=== PATIENT | female | born 1950 | race Caucasian/White ===

== ENCOUNTER 2022-06-23 21:57 | Emergency (ER) | payer MEDICARE, OTHER ==
[~2022-06-23] VITALS: Ht 165.1 cm; Wt 90.9 kg
[2022-06-24 00:37] LABS: BASOPHILS % (AUTO) 0.5 % (0-1); EOSINOPHILS # (AUTO) 0.1 X10'3 (0-0.9); EOSINOPHILS % (AUTO) 1.7 % (0-6); HEMATOCRIT 35.5 % (35.0-45.0); HEMOGLOBIN 11.5 g/dl (12.0-16.0); LYMPHOCYTES # (AUTO) 1.3 X10'3 (1.1-4.8); LYMPHOCYTES % (AUTO) 19.6 % (21-51); MEAN CORPUSCULAR HEMOGLOBIN 26.7 PG (27.0-31.0); MEAN CORPUSCULAR HGB CONC 32.3 g/dL (33.0-36.5); MEAN CORPUSCULAR VOLUME 82.6 FL (78-98); MEAN PLATELET VOLUME 7.9 FL (7.4-10.4); MONOCYTES # (AUTO) 0.5 X10'3 (0-0.9); MONOCYTES % (AUTO) 7.9 % (2-12); NEUTROPHILS # (AUTO) 4.6 X10'3 (1.8-7.7); NEUTROPHILS % (AUTO) 70.3 % (42-75); PLATELET COUNT 404 X10'3 (140-440); RED CELL DISTRIBUTION WIDTH 15.3 % (11.5-14.5); WHITE BLOOD COUNT 6.6 X10'3 (4.5-11.0)
[2022-06-24 00:59] LABS: ALANINE AMINOTRANSFERASE 27 U/L (12-78); ALBUMIN 3.6 G/DL (3.4-5.0); ALBUMIN/GLOBULIN RATIO 0.9 (1.1-1.5); ALKALINE PHOSPHATASE 109 IU/L (46-116); ANION GAP 6 (8-16); ASPARTATE AMINO TRANSFERASE 21 U/L (10-37); BILIRUBIN,TOTAL 0.2 MG/DL (0.1-1.0); BLOOD UREA NITROGEN 19 MG/DL (7-18); BUN/CREATININE RATIO 19.4 (6.6-38.0); CALCIUM 8.8 MG/DL (8.5-10.1); CHLORIDE 102 MMOL/L (99-107); CREATININE 0.98 MG/DL (0.40-0.90); GLUCOSE 108 MG/DL (70-104); POTASSIUM 4.3 MMOL/L (3.5-5.1); SODIUM 138 MMOL/L (135-145); TOTAL CARBON DIOXIDE 30.3 MMOL/L (24-32); TOTAL PROTEIN 7.4 G/DL (6.4-8.2); eGFR 56 ML/MIN
[2022-06-24] MEDS ORDERED: normal saline 1000ML IV soln IVB ONE (01:45)
[2022-06-24] MEDS ORDERED: ondansetron/PF 4mg/2ml inj IV ONE (01:45)
[2022-06-24 04:35] LABS: CLARITY,URINE CLEAR (Clear); COLOR,URINE YELLOW (Yellow); GLUCOSE, URINE NEGATIVE (Neg); KETONES,URINE TRACE mg/dl (Neg); LEUKOCYTE ESTERASE ,URINE TRACE (Neg); NITRITES, URINE NEGATIVE (Neg); OCCULT BLOOD,URINE NEGATIVE (Neg); PH,URINE 5.5 (4.8-8.0); PROTEIN,URINE NEGATIVE (Neg); UROBILINOGEN,URINE 0.2 E.U/dL (0.2-1.0)
[2022-06-24 04:44] LABS: UA COLLECTION TYPE CLN CATCH MIDSTREAM
[2022-06-24 04:45] LABS: MUCUS STRANDS MODERATE /LPF (Neg); SQUAMOUS EPITHELIAL CELL,UR MANY /LPF (FEW)
[2022-06-24 04:46] LABS: RBC,URINE 0-2 /HPF (0-2)
[2022-06-24 04:47] VITALS: BP 135/73
[2022-06-24 04:47] LABS: BACTERIA,URINE FEW /HPF (Neg); WBC,URINE 20-30 /HPF (0-4)
== END 2022-06-24 06:08 | disposition home or self-care (01) ==
LOC: ER 21:59 → EDBD 21:59 → ER 06-24 06:08
DX: R53.1 Weakness (principal); E86.0 Dehydration; R42 Dizziness and giddiness; Z88.0 Allergy status to penicillin; Z88.1 Allergy status to other antibiotic agents
CPT/HCPCS: 36415; 71045; 80053; 81001; 83880; 84484; 85025; 93005; 96360; 99285; J7030

== ENCOUNTER 2023-08-30 16:02 | Emergency (ER) | payer MEDICARE, OTHER ==
[~2023-08-30] VITALS: Ht 160 cm; Wt 81.0 kg
[2023-08-30 18:27] LABS: BASOPHILS % (AUTO) 0.7 % (0-1); EOSINOPHILS # (AUTO) 0.1 X10'3 (0-0.9); EOSINOPHILS % (AUTO) 1.8 % (0-6); HEMOGLOBIN 12.5 g/dl (12.0-16.0); LYMPHOCYTES # (AUTO) 1.8 X10'3 (1.1-4.8); LYMPHOCYTES % (AUTO) 27.6 % (21-51); MEAN CORPUSCULAR HEMOGLOBIN 27.5 PG (27.0-31.0); MEAN CORPUSCULAR HGB CONC 32.9 g/dL (33.0-36.5); MEAN CORPUSCULAR VOLUME 83.4 FL (78-98); MEAN PLATELET VOLUME 7.6 FL (7.4-10.4); MONOCYTES # (AUTO) 0.6 X10'3 (0-0.9); MONOCYTES % (AUTO) 8.8 % (2-12); NEUTROPHILS # (AUTO) 4.1 X10'3 (1.8-7.7); NEUTROPHILS % (AUTO) 61.1 % (42-75); PLATELET COUNT 408 X10'3 (140-440); RED BLOOD COUNT 4.56 X10'6 (4.20-5.60); RED CELL DISTRIBUTION WIDTH 14.2 % (11.5-14.5); WHITE BLOOD COUNT 6.7 X10'3 (4.5-11.0)
[2023-08-30 18:36] LABS: PROTHROMBIN TIME 11.1 SECONDS (9.0-12.0)
[2023-08-30 18:40] LABS: ALBUMIN 3.8 G/DL (3.4-5.0); ANION GAP 6 (8-16); BLOOD UREA NITROGEN 14 MG/DL (7-18); BUN/CREATININE RATIO 16.7 (10.0-20.0); CHLORIDE 96 MMOL/L (99-107); CREATININE 0.84 MG/DL (0.40-0.90); GLUCOSE 102 MG/DL (70-104); POTASSIUM 3.9 MMOL/L (3.5-5.1); SODIUM 133 MMOL/L (135-145); TOTAL CARBON DIOXIDE 30.9 MMOL/L (24-32); eCRCL 49 ML/MIN; eGFR 66 ML/MIN
[2023-08-30 18:57] LABS: APTT 30 SECONDS (22-32)
[2023-08-30 19:41] LABS: BILIRUBIN,URINE NEGATIVE (Neg); CLARITY,URINE SLIGHTLY CLOUDY (Clear); COLOR,URINE YELLOW (Yellow); GLUCOSE, URINE NEGATIVE (Neg); KETONES,URINE NEGATIVE (Neg); LEUKOCYTE ESTERASE ,URINE LARGE (Neg); NITRITES, URINE NEGATIVE (Neg); OCCULT BLOOD,URINE NEGATIVE (Neg); PH,URINE 7.5 (4.8-8.0); PROTEIN,URINE NEGATIVE (Neg); UROBILINOGEN,URINE 0.2 E.U/dL (0.2-1.0)
[2023-08-30 19:56] LABS: UA COLLECTION TYPE CLN CATCH MIDSTREAM
[2023-08-30 19:58] LABS: MUCUS STRANDS FEW /LPF (Neg); SQUAMOUS EPITHELIAL CELL,UR MANY /LPF (FEW); TRANSITIONAL EPI CELLS,URINE FEW /HPF
[2023-08-30 20:00] LABS: BACTERIA,URINE 2+ /HPF (Neg); WBC CLUMPS,URINE FEW /HPF (NEGATIVE)
[2023-08-30] MEDS: predniSONE 20 mg tablet PO ONE (21:40)
[2023-08-30] MEDS ORDERED: valproate sod inj 500 MG in normal saline 50ml IV soln 50 ML IV ONE (21:40)
[2023-08-30] MEDS: normal saline 1000ML IV soln IVB ONE (21:40)
[2023-08-30] MEDS ORDERED: MECL-302 PO (22:42)
[2023-08-30] MEDS: magnesium 2GM in 50ml NS 50 ML IV ONE (22:56)
[2023-08-30] MEDS: valproic acid 250mg/5ml UD oral syrup PO ONE (22:58)
[2023-08-30] MEDS ORDERED: CAND16TA29 PO (23:26)
[2023-08-30] MEDS ORDERED: XAL0.005OS LEFTEYE (23:26)
[2023-08-30] MEDS ORDERED: DORZ10DR26 RIGHTEYE (23:26)
[2023-08-30] MEDS ORDERED: FEXO180T94 PO (23:26)
[2023-08-30] MEDS ORDERED: ACET-1025 PO (23:26)
[2023-08-30] MEDS ORDERED: OMEP20TA23 PO (23:26)
[2023-08-30] MEDS ORDERED: BUPR300T53 PO (23:26)
[2023-08-30] MEDS ORDERED: XAL0.005OS RIGHTEYE (23:26)
[2023-08-30] MEDS ORDERED: DORZ10DR26 LEFTEYE (23:26)
[2023-08-30] MEDS ORDERED: ASPI-1071 PO (23:26)
[2023-08-30] MEDS ORDERED: CHLO25TA10 PO (23:26)
[2023-08-31 00:25] VITALS: BP 137/64; PULSE 63; RESP 13; TEMP 97.4; O2SAT 96
== END 2023-08-31 00:27 | disposition home or self-care (01) ==
LOC: ER 16:03
DX: R42 Dizziness and giddiness (principal); R51.9 Headache, unspecified; D32.9 Benign neoplasm of meninges, unspecified
CPT/HCPCS: 36415; 70450; 71045; 80048; 81001; 84484; 85025; 85610; 85730; 86885; 86900; 86901; 93005; 96365; 96366; 99285; J3475; J7030

== ENCOUNTER 2024-09-25 16:31 | Emergency (ER) | payer MEDICARE, OTHER ==
[~2024-09-25] VITALS: Ht 162.6 cm; Wt 106.5 kg
[~2024-09-25 16:31] MED LIST: ACET-1025 PO; ASPI-1071 PO; BUPR300T53 PO; CAND16TA29 PO; CHLO25TA10 PO; DORZ10DR26 LEFTEYE; DORZ10DR26 RIGHTEYE; FEXO180T94 PO; OMEP20TA23 PO; XAL0.005OS LEFTEYE; XAL0.005OS RIGHTEYE
[2024-09-25] MEDS: LIDOcaine 2% Viscous 15ml cup MM PRN (17:40)
[2024-09-25] MEDS: morphine 4 MG/ML inj SYRINge IV ONE (17:41)
[2024-09-25] MEDS: ondansetron/PF 4mg/2ml inj IV ONE (17:43)
[2024-09-25] MEDS: mag hydrox/Alum hydrox/simeth 30ml oral suspension PO ONE ×2 (17:44→22:06)
[2024-09-25 17:51] LABS: HEMATOCRIT 41.5 % (35.0-45.0); HEMOGLOBIN 13.6 g/dl (12.0-16.0); MEAN CORPUSCULAR HEMOGLOBIN 29.5 PG (27.0-31.0); MEAN CORPUSCULAR HGB CONC 32.8 g/dL (33.0-36.5); MEAN CORPUSCULAR VOLUME 89.9 FL (78-98); MEAN PLATELET VOLUME 8.7 FL (7.4-10.4); PLATELET COUNT 323 X10'3 (140-440); RED BLOOD COUNT 4.61 X10'6 (4.20-5.60); RED CELL DISTRIBUTION WIDTH 14.8 % (11.5-14.5); WHITE BLOOD COUNT 8.2 X10'3 (4.5-11.0)
[2024-09-25 18:06] LABS: ALANINE AMINOTRANSFERASE 24 U/L (12-78); ALBUMIN 3.4 G/DL (3.4-5.0); ALBUMIN/GLOBULIN RATIO 0.8 (1.1-1.5); ALKALINE PHOSPHATASE 119 IU/L (46-116); ANION GAP 5 (8-16); BILIRUBIN,TOTAL 0.3 MG/DL (0.1-1.0); BLOOD UREA NITROGEN 13 MG/DL (7-18); BUN/CREATININE RATIO 17.1 (10.0-20.0); CALCIUM 9.9 MG/DL (8.5-10.1); CHLORIDE 100 MMOL/L (99-107); CREATININE 0.76 MG/DL (0.40-0.90); GLUCOSE 103 MG/DL (70-104); LIPASE 51 U/L (16-77); SODIUM 138 MMOL/L (135-145); TOTAL CARBON DIOXIDE 33.5 MMOL/L (24-32); TOTAL PROTEIN 7.8 G/DL (6.4-8.2); eCRCL 55 ML/MIN; eGFR 74 ML/MIN
[2024-09-25 18:13] LABS: ASPARTATE AMINO TRANSFERASE 20 U/L (10-37); POTASSIUM 4.8 MMOL/L (3.5-5.1)
[2024-09-25 18:42] LABS: PLATELET ESTIMATE NORMAL; TOTAL CELLS COUNTED 100
[2024-09-25] MEDS ORDERED: iohexol 350MG/ML 100ml bottle IV ONE (19:08)
[2024-09-25 20:15] LABS: BILIRUBIN,URINE NEGATIVE (Neg); CLARITY,URINE CLEAR (Clear); COLOR,URINE YELLOW (Yellow); GLUCOSE, URINE NEGATIVE (Neg); KETONES,URINE NEGATIVE (Neg); LEUKOCYTE ESTERASE ,URINE TRACE (Neg); NITRITES, URINE NEGATIVE (Neg); OCCULT BLOOD,URINE NEGATIVE (Neg); PROTEIN,URINE NEGATIVE (Neg); UROBILINOGEN,URINE 0.2 E.U/dL (0.2-1.0)
[2024-09-25 20:27] LABS: UA COLLECTION TYPE CLN CATCH MIDSTREAM
[2024-09-25 20:28] LABS: BACTERIA,URINE 2+ /HPF (Neg); RBC,URINE NONE SEEN /HPF (0-2); SQUAMOUS EPITHELIAL CELL,UR MODERATE /LPF (FEW)
[2024-09-25] MEDS: famotidine/PF 10 mg/ml inj IV ONE (22:06)
[2024-09-25] MEDS: pantoprazole 40 MG vial IV ONE (22:07)
[2024-09-25 23:16] VITALS: BP 140/74; PULSE 64; RESP 15; TEMP 97.8; O2SAT 100
== END 2024-09-25 23:18 | disposition home or self-care (01) ==
LOC: ER 16:31
DX: R10.12 Left upper quadrant pain (principal); I10 Essential (primary) hypertension; Z88.0 Allergy status to penicillin; Z88.1 Allergy status to other antibiotic agents; Z79.82 Long term (current) use of aspirin
CPT/HCPCS: 36415; 74174; 80053; 81001; 83690; 84484; 85007; 85025; 87088; 93005; 96374; 96375; 99285; J2270; J2405; J2470; J3490; Q9967